=== PATIENT | male | born 1950 | race Caucasian/White ===

== ENCOUNTER 2017-04-06 20:17 | Emergency (ER) | payer OTHER ==
[~2017-04-06 20:17] MED LIST: ASPIRIN EC81 M1 PO; FLEXERIL10 M1 PO; FLEXERIL10 MG PO; IBUPROFEN800 MG PO; LIPITOR PO; MEDROL4 MG/DOSE- PO; MOTRIN600 MG PO; NORCO 5/325 TAB1 TAB PO; PERCOCET5/325 PO; PREDNISONE PO; SYNTHROID; ULTRAM PO; ZESTRIL10 M1
== END 2017-04-06 22:15 | disposition home or self-care (01) ==
LOC: CFTX 20:17 → CED 20:17 → CFTX 21:00
DX: M79.645 Pain in left finger(s) (principal); G89.29 Other chronic pain; I10 Essential (primary) hypertension; E11.9 Type 2 diabetes mellitus without complications; F17.210 Nicotine dependence, cigarettes, uncomplicated
CPT/HCPCS: 99283